=== PATIENT | female | born 1985 | race Caucasian/White ===

== ENCOUNTER 2019-04-11 22:00 | Emergency (ER) | payer OTHER ==
[~2019-04-11] VITALS: Ht 162.6 cm; Wt 67.1 kg
[2019-04-11] MEDS ORDERED: PRENATABS RX T1 EACH (22:13)
== END 2019-04-12 04:12 | disposition home or self-care (01) ==
LOC: ER 22:00
DX: O20.0 Threatened abortion (principal)

== ENCOUNTER 2020-09-11 09:15 | Emergency (ER) | payer OTHER ==
[~2020-09-11] VITALS: Ht 162.6 cm; Wt 69.4 kg
[~2020-09-11 09:15] MED LIST: PRENATABS RX T1 EACH
== END 2020-09-11 12:37 | disposition home or self-care (01) ==
LOC: ER 09:15
DX: O26.851 Spotting complicating pregnancy, first trimester (principal); O36.80X1 Pregnancy with inconclusive fetal viability, fetus 1; Z36.89 Encounter for other specified antenatal screening; Z3A.08 8 weeks gestation of pregnancy

== ENCOUNTER 2020-09-15 12:14 | Day surgery (SDC) | payer OTHER ==
[~2020-09-15] VITALS: Ht 162.6 cm; Wt 69.4 kg
== END 2020-09-15 14:36 | disposition home or self-care (01) ==
LOC: ER 12:14 → O/R 12:14 → CIR.AMB 12:14
PROVIDERS: ATTEND Obstetrics & Gynecology
DX: O03.4 Incomplete spontaneous abortion without complication (principal); Z20.828 Contact with and (suspected) exposure to other viral communicable diseases

== ENCOUNTER 2021-11-11 04:11 | Inpatient (IN) | payer OTHER ==
[~2021-11-11] VITALS: Ht 165.1 cm; Wt 90.7 kg
[2021-11-11] MEDS ORDERED: VITAMIN B-121000 MC4 PO (04:54)
[2021-11-11] MEDS ORDERED: FOLIC ACID0.8 M1 PO (04:54)
[2021-11-11] MEDS ORDERED: ORTHO DF 3,7751 EACH PO (04:55)
== END 2021-11-13 16:19 | disposition home or self-care (01) | DRG 807 ==
LOC: LDR 04:11 → OB/GYN 04:11
PROVIDERS: ADMIT Obstetrics & Gynecology; ATTEND Obstetrics & Gynecology
PROC: 10E0XZZ Delivery of Products of Conception, External Approach (ICD-10-PCS; principal; 2021-11-11)
PROC: 0HQ9XZZ Repair Perineum Skin, External Approach (ICD-10-PCS; 2021-11-11)
PROC: 4A1HXFZ Monitoring of Products of Conception, Cardiac Rhythm, External Approach (ICD-10-PCS; 2021-11-11)
PROC: 3E0P7VZ Introduction of Hormone into Female Reproductive, Via Natural or Artificial Opening (ICD-10-PCS; 2021-11-11)
DX: O70.1 Second degree perineal laceration during delivery (principal); O99.824 Streptococcus B carrier state complicating childbirth; O42.02 Full-term premature rupture of membranes, onset of labor within 24 hours of rupture; Z37.0 Single live birth; Z3A.39 39 weeks gestation of pregnancy

== ENCOUNTER 2023-11-12 11:56 | Outpatient (CLI) | payer OTHER ==
[~2023-11-12 11:56] MED LIST changes: +FOLIC ACID0.8 M1 PO; +ORTHO DF 3,7751 EACH PO; +VITAMIN B-121000 MC4 PO
== END 2023-11-12 11:57 | disposition home or self-care (01) ==
LOC: PRENATAL 11:56
PROVIDERS: ATTEND Obstetrics & Gynecology Maternal & Fetal Medicine
DX: O36.80X0 Pregnancy with inconclusive fetal viability, not applicable or unspecified (principal); Z36.82 Encounter for antenatal screening for nuchal translucency; Z36.9 Encounter for antenatal screening, unspecified; Z14.8 Genetic carrier of other disease; O09.529 Supervision of elderly multigravida, unspecified trimester; Z3A.13 13 weeks gestation of pregnancy

== ENCOUNTER → 2023-12-27 14:21 | Outpatient (CLI) | payer OTHER | END | disposition home or self-care (01) | LOC: PRENATAL 14:21 | PROVIDERS: ATTEND Obstetrics & Gynecology Maternal & Fetal Medicine | DX: O35.3XX0 Maternal care for (suspected) damage to fetus from viral disease in mother, not applicable or unspecified (principal); O44.00 Complete placenta previa NOS or without hemorrhage, unspecified trimester; O09.529 Supervision of elderly multigravida, unspecified trimester; Z3A.19 19 weeks gestation of pregnancy ==

== ENCOUNTER 2024-05-15 01:20 | Inpatient (IN) | payer OTHER ==
[~2024-05-15] VITALS: Ht 165.1 cm; Wt 3.6 kg
[2024-05-15] MEDS ORDERED: RINGERS SOLUTION,LACTATED 1,000 ML IV SCH (01:30)
[2024-05-15 02:07] LABS: URINE APPEARANCE Clear; URINE BILIRRUBIN Negative (NEGATIVE); URINE BLOOD Negative; URINE COLOR Yellow; URINE GLUCOSE Negative (NEGATIVE); URINE LEUKOCYTE Negative; URINE NITRATE Negative; URINE PROTEIN Negative (NEGATIVE); URINE UROBILINOGEN 0.2 E.U./dl
[2024-05-15 02:10] LABS: URINE BACTERIA 521.5 uL (0.0-1933); URINE EPITHELIAL CELLS 13.4 uL (0.0-38.8); URINE WBC 9.4 uL (0.0-23.2)
[2024-05-15 02:15] LABS: HEMATOCRIT 37.9 % (36.0-45.00); HEMOGLOBIN 12.9 g/dL (12.0-15.00); MEAN CELL VOLUME 87.6 fL (80.00-100.00); MEAN CORPUSCULAR HEMOGLOBIN 29.7 pg (27.00-32.0); PLATELET COUNT 229 K/uL (150-450); RED BLOOD COUNT 4.33 M/uL (4.00-6.00); RED CELL DISTRIBUTION WIDTH 14.7 % (11.5-14.5)
[2024-05-15 02:18] LABS: URINE RBC 0.4 uL (0.0-20.8)
[2024-05-15 02:24] LABS: INR 0.95; PARTIAL THROMBOPLASTIN TIME 24.6 SECONDS (22.0-34.0)
[2024-05-15] MEDS ORDERED: OXYTOCIN 500 ML IV ONE (03:45)
[2024-05-15] MEDS ORDERED: MORPHINE SULFATE 4 MG/ML VIAL IV ONE (03:45)
[2024-05-15] MEDS ORDERED: ERYTHROMYCIN BASE 1 GM TUBE OP NR (12:45)
[2024-05-15] MEDS ORDERED: OXYTOCIN 10 UNITS/ML VIAL IV NR (12:45)
[2024-05-15] MEDS ORDERED: CEFAZOLIN SODIUM 1,000 MG VIAL IV SCH (12:45)
[2024-05-15] MEDS ORDERED: PROMETHAZINE HCL 50 MG/ML AMPUL IM PRN (14:45)
[2024-05-15] MEDS ORDERED: MEPERIDINE HCL/PF 50 MG/ML VIAL IM PRN (14:45)
[2024-05-15 16:08] LABS: ABG PH 7.341 (7.35-7.45); ABG PO2 24.2 mmHg (80-100); ABG pCO2 47.9 mmHg (35-45)
[2024-05-15 16:09] LABS: BASE EXCESS -0.9 mmol/l; BICARBONATE 25.3 mmol/l (23-25); SaO2 38.3 %; Tco2 26.8 mmol/l; o2 21 %
[2024-05-15 21:12] LABS: HEMATOCRIT 35.1 % (36.0-45.00); HEMOGLOBIN 11.9 g/dL (12.0-15.00); MEAN CELL VOLUME 88.8 fL (80.00-100.00); MEAN CORPUSCULAR HEMOGLOBIN 30.2 pg (27.00-32.0); PLATELET COUNT 213 K/uL (150-450); RED BLOOD COUNT 3.95 M/uL (4.00-6.00); RED CELL DISTRIBUTION WIDTH 14.6 % (11.5-14.5)
[2024-05-15] MEDS ORDERED: PROMETHAZINE HCL 25 MG/ML AMPUL IV PRN (22:00)
[2024-05-15] MEDS ORDERED: MEPERIDINE HCL/PF 50 MG/ML VIAL IV PRN (22:00)
[2024-05-16] MEDS ORDERED: OxyCODONE HCL/APAP UD (PERCOCET) PO PRN (08:00)
[2024-05-16] MEDS ORDERED: DOCUSATE SODIUM 100MG CAP PO SCH (09:00)
[2024-05-16] MEDS ORDERED: PNV,CALCIUM 72/IRON/FOLIC ACID 1 TAB TABLET PO SCH (09:00)
[2024-05-16] MEDS ORDERED: SIMETHICONE 125 MG CAPSULE PO SCH (09:00)
[2024-05-18] MEDS ORDERED: BISACODYL 10 MG/SUPP.RECT SUPP.RECT RECTAL NR (15:30)
[2024-05-18] MEDS ORDERED: IBUprofen 600 MG TABLET PO PRN (15:30)
== END 2024-05-19 18:31 | disposition home or self-care (01) | DRG 785 ==
LOC: OB/GYN 01:20 → LDR 01:20 → OB/GYN 15:15
PROVIDERS: ADMIT Obstetrics & Gynecology; ATTEND Obstetrics & Gynecology
PROC: 0UB70ZZ Excision of Bilateral Fallopian Tubes, Open Approach (ICD-10-PCS; 2024-05-15)
PROC: 4A1HXCZ Monitoring of Products of Conception, Cardiac Rate, External Approach (ICD-10-PCS; 2024-05-15)
PROC: 10D00Z1 Extraction of Products of Conception, Low, Open Approach (ICD-10-PCS; principal; 2024-05-15 13:30)
DX: O33.8 Maternal care for disproportion of other origin (principal); Z3A.38 38 weeks gestation of pregnancy; Z37.0 Single live birth; Z20.822 Contact with and (suspected) exposure to COVID-19; Z30.2 Encounter for sterilization

== ENCOUNTER 2024-06-14 19:50 | Emergency (ER) | payer OTHER ==
[~2024-06-14] VITALS: Ht 162.6 cm; Wt 79.4 kg
[2024-06-14 21:32] LABS: HEMATOCRIT 38.5 % (36.0-45.00); MEAN CELL VOLUME 86.4 fL (80.00-100.00); MEAN CORPUSCULAR HEMOGLOBIN 29.1 pg (27.00-32.0); MEAN CORPUSCULAR HGB CONC 33.7 g/dl (32.0-36.0); PLATELET COUNT 270 K/uL (150-450); RED BLOOD COUNT 4.46 M/uL (4.00-6.00); RED CELL DISTRIBUTION WIDTH 14.4 % (11.5-14.5)
[2024-06-14 21:47] LABS: INR 1.01; PARTIAL THROMBOPLASTIN TIME 29.8 SECONDS (22.0-34.0); PROTHROMBIN TIME 10.6 SECONDS (9.0-11.5)
[2024-06-14 21:48] LABS: CALCIUM 9.5 mg/dL (8.5-10.1); CREATININE SERUM 0.74 mg/dL (0.55-1.02); GFR 88.31; POTASSIUM 4.17 mEq/L (3.5-5.1)
[2024-06-14 21:59] LABS: PH,URINE 6.5 (5.0-8.0); URINE APPEARANCE Clear; URINE BILIRRUBIN Negative (NEGATIVE); URINE BLOOD Negative; URINE COLOR Yellow; URINE GLUCOSE Negative (NEGATIVE); URINE KETONE Negative (NEGATIVE); URINE LEUKOCYTE Moderate; URINE NITRATE Negative; URINE PROTEIN Negative (NEGATIVE); URINE UROBILINOGEN 0.2 E.U./dl
[2024-06-14 22:00] LABS: URINE BACTERIA 1185.6 uL (0.0-1933); URINE EPITHELIAL CELLS 44.9 uL (0.0-38.8); URINE WBC 93.3 uL (0.0-23.2)
[2024-06-14 22:01] LABS: URINE RBC 0.9 uL (0.0-20.8)
== END 2024-06-14 23:00 | disposition home or self-care (01) ==
LOC: ER 19:51
PROVIDERS: General Practice
DX: R10.84 Generalized abdominal pain (principal); Z98.890 Other specified postprocedural states; K59.00 Constipation, unspecified; N20.0 Calculus of kidney; Z91.018 Allergy to other foods; Z88.8 Allergy status to other drugs, medicaments and biological substances